=== PATIENT | female | born 1970 | race Caucasian/White ===

== ENCOUNTER 2017-02-07 11:26 | Inpatient (IN) | payer BC ==
[~2017-02-07] VITALS: Ht 172.7 cm; Wt 3.6 kg
[~2017-02-07 11:26] MED LIST: ZANTAC150 MG PO
[2017-02-09 08:32] VITALS: BP 139/86
[2017-02-09 14:38] VITALS: BP 150/71
[2017-02-09 17:56] LABS: MCH 32.3 PG (29.0-34.0); MCHC 35.3 G/DL (30.0-36.0); MCV 91.6 FL (83-99); MEAN PLAT.VOLUME 9.7 uM^3 (9.5-12.4); PLATELET COUNT 346 K/uL (156-360); RBC DIS.WIDTH-CV 12.1 % (11.8-14.6); RBC DIS.WIDTH-SD 40.5 % (39-53); RED BLOOD COUNT 4.15 M/uL (3.80-5.20); WHITE BLOOD COUNT 12.1 K/uL (4.1-10.2)
[2017-02-09 18:25] LABS: ANION GAP 13 MEQ/L (2-14); CHLORIDE 103 MEQ/L (99-109); GFR ESTIMATE (CALCULATED) > 59 mL/min/; GLUCOSE 183 mg/dL (70-99); POTASSIUM 3.9 MEQ/L (3.7-5.4); SAMPLE HEMOLYSIS CHECK 0; SAMPLE ICTERIC CHECK 0; SAMPLE LIPEMIA CHECK 0; SODIUM 137 MEQ/L (136-147); UREA NITROGEN (BUN) 8 mg/dL (9-23)
[2017-02-09 21:40] VITALS: BP 150/89
[2017-02-09 23:40] VITALS: BP 160/86
[2017-02-10 03:44] VITALS: BP 146/61
[2017-02-10 05:15] LABS: HEMATOCRIT 35.8 % (36.0-46.0); MCHC 34.6 G/DL (30.0-36.0); MCV 92.5 FL (83-99); MEAN PLAT.VOLUME 9.9 uM^3 (9.5-12.4); PLATELET COUNT 349 K/uL (156-360); RBC DIS.WIDTH-CV 12.1 % (11.8-14.6); RBC DIS.WIDTH-SD 41.2 % (39-53); RED BLOOD COUNT 3.87 M/uL (3.80-5.20); WHITE BLOOD COUNT 15.5 K/uL (4.1-10.2)
[2017-02-10 05:38] LABS: ANION GAP 11 MEQ/L (2-14); CHLORIDE 104 MEQ/L (99-109); GFR ESTIMATE (CALCULATED) > 59 mL/min/; GLUCOSE 148 mg/dL (70-99); POTASSIUM 3.8 MEQ/L (3.7-5.4); SAMPLE HEMOLYSIS CHECK 0; SAMPLE ICTERIC CHECK 0; SAMPLE LIPEMIA CHECK 0; SODIUM 139 MEQ/L (136-147); UREA NITROGEN (BUN) 6 mg/dL (9-23)
[2017-02-10 07:35] VITALS: BP 179/87
[2017-02-10 12:07] VITALS: BP 156/80
[2017-02-10 15:57] VITALS: BP 162/82
[2017-02-10 19:50] VITALS: BP 129/56
[2017-02-10 23:45] VITALS: BP 153/79
[2017-02-11 04:09] VITALS: BP 143/79
[2017-02-11 07:12] VITALS: BP 136/82
[2017-02-11 08:08] LABS: HEMATOCRIT 37.3 % (36.0-46.0); MCH 31.7 PG (29.0-34.0); MCHC 34.3 G/DL (30.0-36.0); MCV 92.3 FL (83-99); MEAN PLAT.VOLUME 9.8 uM^3 (9.5-12.4); PLATELET COUNT 323 K/uL (156-360); RBC DIS.WIDTH-CV 11.9 % (11.8-14.6); RBC DIS.WIDTH-SD 40.4 % (39-53); RED BLOOD COUNT 4.04 M/uL (3.80-5.20); WHITE BLOOD COUNT 11.8 K/uL (4.1-10.2)
[2017-02-11 08:32] LABS: ANION GAP 9 MEQ/L (2-14); CHLORIDE 102 MEQ/L (99-109); GFR ESTIMATE (CALCULATED) > 59 mL/min/; GLUCOSE 116 mg/dL (70-99); POTASSIUM 3.9 MEQ/L (3.7-5.4); SAMPLE HEMOLYSIS CHECK 0; SAMPLE ICTERIC CHECK 0; SAMPLE LIPEMIA CHECK 0; SODIUM 136 MEQ/L (136-147); UREA NITROGEN (BUN) 5 mg/dL (9-23)
[2017-02-11] MEDS ORDERED: TRAMADOL HCL50 MG PO (08:47)
== END 2017-02-11 10:59 | disposition home or self-care (01) | DRG 743 ==
LOC: 2SOUTH 11:26 → 2EASTP 02-09 14:23 → 2SOUTH 02-09 15:17 → 2EASTP 02-11 10:59
PROVIDERS: Obstetrics & Gynecology Gynecologic Oncology
DX: D25.9 Leiomyoma of uterus, unspecified (principal); N93.8 Other specified abnormal uterine and vaginal bleeding; Z80.41 Family history of malignant neoplasm of ovary
CPT/HCPCS: 36415; 80048; 85027; 86850; 86900; 86901; 86920; 88305; 88307; J0131; J0360; J0690; J1100; J1170; J1650; J1885; J2250; J2270; J2405; J2710; J2765; J3010